=== PATIENT | male | born 1980 | race Caucasian/White ===

== ENCOUNTER 2021-06-23 17:52 | Emergency (ER) | payer OTHER, SELFPAY ==
[2021-06-23 18:03] VITALS: BP 117/68; BP 150/90; PULSE 102; PULSE 112; RESP 12; TEMP 37.2; O2SAT 96; O2SAT 98; BMI 34.2
--- NOTE | 2021-06-23 18:18 | ED_ITS ---
HPI - Altered Mental Status General Chief Complaint: Back Pain/Injury Stated Complaint: overdose Time Seen by Provider: 06/23/21 18:18 Source: patient Mode of arrival: EMS Limitations: no limitations History of Present Illness HPI narrative: Patient history of depression takes Ambien at her ex and tramadol took 2 Ambien 5 mg each 1 Atarax and 1 tramadol an hour prior to arrival and was walking outside the house slightly drowsy neighbor called the EMS thinking overdose patient denies any other drug use no overdose according to him , patient took extra pill as he was having the lower back pain denies any suicidal ideation or intentional overdose denies any other substance abuse Related Data Allergies Allergy/AdvReac Type Severity Reaction Status Date / Time No Known Allergies Allergy Verified 06/23/21 19:18 Review of Systems Review of Systems: Yes all other systems are reviewed and are negative [facility] Past Medical History Medical History Anxiety Depression Diabetes Esophageal cancer Hypertension Surgical History Hx of appendectomy Social History Social History Advance Directives: No Advance Directives Information Provided: No Physical Exam Vital Signs: Vital Signs: Last Vital Signs Temp 97.8 F 06/23/21 22:25 Pulse 86 06/23/21 22:25 Resp 18 06/23/21 22:25 BP 111/68 06/23/21 22:25 Pulse Ox 99 06/23/21 22:25 Body Mass Index 34.2 Appearance: Alert. Oriented X3. No acute distress. Lethargic and sleepy Eyes: PERRLA, No Nystagmus no pallor or icterus ENT: Pharynx normal. Oral Mucosa moist Neck: Normal inspection. Neck supple. CVS: Normal heart rate and rhythm. Pulses normal. Respiratory: No respiratory distress. Equal air entry bilateral, no wheezing/rales/rhonchi Abdomen: Soft and nontender. Bowel sounds are present, no mass palpable, no CVA tenderness Skin: Skin warm and dry. Normal skin color. Normal skin turgor. No IVDA track bautista Extremities: No lower extremity edema. No calf tenderness Psych: Depression+ no suicidal ideation no hallucination or delusion Neuro: Oriented X 3. No motor deficit. No sensory deficit.No cerebellar signs , cranial nerves II-XII intact MDM - Altered Mental Status MDM Narrative Medical decision making narrative: Patient urine positive for cocaine woke up now alert and awake x3 says that people around him were smoking cocaine last night patient back to baseline having food in the ER will discharge patient home Lab Data Attestation: I reviewed the patient's lab results. Labs: Lab Results 06/23/21 Range/Units 19:27 Urine Opiates Screen Not Detected (Not Detect) Urine Fentanyl Screen Not Detected (Not Detect) Ur Barbiturates Screen Not Detected (Not Detect) Ur Phencyclidine Scrn Not Detected (Not Detect) Ur Amphetamines Screen Not Detected (Not Detect) U Benzodiazepines Scrn Not Detected (Not Detect) Urine Cocaine Screen POSITIVE H (Not Detect) U Marijuana (THC) Screen Not Detected (Not Detect) Discharge Plan Discharge Clinical Impression: Cocaine substance abuse Patient Disposition: Home, Self-Care Instructions: Cocaine Abuse (ED) Additional Instructions: Stop using cocaine Do not use sleeping medicine during daytime Follow-up with PCP
--- NOTE | 2021-06-23 19:19 | ECG_ITS ---
Test Reason : BACK PAIN Blood Pressure : / mmHG Vent. Rate : 095 BPM Atrial Rate : 095 BPM P-R Int : 136 ms QRS Dur : 106 ms QT Int : 384 ms P-R-T Axes : 065 043 010 degrees QTc Int : 482 ms Normal sinus rhythm Prolonged QT Abnormal ECG No previous ECGs available Referred By: Prasanth Severino Electronically Signed By:KINJAL SOL
[2021-06-23 19:53] LABS: Amphetamine Screen Urine Not Detected (Not Detect); Barbiturates, Urine Not Detected (Not Detect); Benzodiazepines Screen Urine Not Detected (Not Detect); Cannabinoid Screen Urine Not Detected (Not Detect); Cocaine Screen Urine POSITIVE (Not Detect); Fentanyl, urine Not Detected (Not Detect); Opiate Screen Urine Not Detected (Not Detect); Phencyclidine Screen Urine Not Detected (Not Detect)
[2021-06-23 22:25] VITALS: BP 111/68; PULSE 86; RESP 18; TEMP 36.6; O2SAT 99
--- NOTE | 2021-06-23 23:30 | PC.NURSE ---
Reviewed discharge instructions. Pt being discharged home.
== END 2021-06-23 23:34 | disposition home or self-care (01) ==
PROVIDERS: Emergency Provider Internal Medicine
DX: F14.10 Cocaine abuse, uncomplicated (principal); E11.9 Type 2 diabetes mellitus without complications; I10 Essential (primary) hypertension; Z85.01 Personal history of malignant neoplasm of esophagus; F32.9 Major depressive disorder, single episode, unspecified; Z79.899 Other long term (current) drug therapy
CPT/HCPCS: 80307; 93005; 99284